=== PATIENT | female | born 1955 | race Caucasian/White ===

== ENCOUNTER 2019-12-19 08:44 | Emergency (ER) | payer BC ==
[~2019-12-19] VITALS: Ht 162.6 cm; Wt 68.0 kg
--- NOTE | 2019-12-19 08:54 | PHYS DOC ---
General Adult EDM: Chief Complaint: ABDOMINAL PAIN HPI: HPI: Patient is a 64 year old female presenting to the ED with a chief complaint of right lower quadrant abdominal pain that started around 6 AM this morning. Patient states that the pain lasted 1 hour and is eased up currently. Patient describes nausea but no vomiting. Patient states that she thought she had a hernia as she has been lifting a lot of weights recently. Patient denies fever, chills, dysuria, hematuria. Patient states that she does not have a history of ovarian cyst. Patient describes the pain as dull with no radiation. Review of Systems: Review of Systems: Constitutional: Denies fever or chills. [] Eyes: Denies change in visual acuity. [] HENT: Denies nasal congestion or sore throat. [] Respiratory: Denies cough or shortness of breath. [] Cardiovascular: Denies chest pain or edema. [] GI: Complains of right lower quadrant tenderness and nausea. Patient denies vomiting. : Denies dysuria. [] Musculoskeletal: Denies back pain or joint pain. [] Neurologic: Denies headache, focal weakness or sensory changes. [] Heart Score: Risk Factors: Risk Factors: DM, Current or recent (<one month) smoker, HTN, HLP, family history of CAD, obesity. Risk Scores: Score 0 - 3: 2.5% MACE over next 6 weeks - Discharge Home Score 4 - 6: 20.3% MACE over next 6 weeks - Admit for Clinical Observation Score 7 - 10: 72.7% MACE over next 6 weeks - Early Invasive Strategies Physical Exam: PE: Constitutional: Well developed, well nourished, no acute distress, non-toxic appearance. [] HENT: Normocephalic, atraumatic Eyes: EOMI Neck: Normal range of motion, Supple Cardiovascular:Heart rate regular rhythm Lungs & Thorax: Bilateral breath sounds clear to auscultation [] Abdomen: Right lower quadrant tenderness Extremities: No tenderness, ROM intact Neurologic: Alert and oriented X 3 EKG: EKG: [] Radiology/Procedures: Radiology/Procedures: [] Impression: IMPRESSION: Mild hydronephrosis or hydroureter on the right side due to recent passage of ureteral stone. The dilatation of the upper right urinary tract may be due to persistent distal ureteral edema. There are 2 punctate stones within the lumen of the urinary bladder. Small right lower lobe lung nodules. If the patient is at high risk for malignancy, follow-up chest CT in 12 months is recommended as per Fleischner guidelines. If low risk, then no further follow-up is needed. Course & Med Decision Making: Course & Med Decision Making Pertinent Labs and Imaging studies reviewed. (See chart for details) Ordered labs, UA, CT abdomen pelvis Labs are within normal limits. UA shows that patient has hematuria. CT shows recently passed ureteral stones on the right. There are lung nodules also seen which I have discussed with patient so that patient can follow-up with her PCP. Patient can be discharged for outpatient follow-up. Discussed results and plan of care with patient. Patient is instructed to follow up with PCP in one to 2 days. Appropriate discharge instructions given to patient to return to the ED or to seek immediate medical evaluation. Patient is instructed to return to the ED if symptoms worsen or if any concerns. Dragon Disclaimer: Dragon Disclaimer: This electronic medical record was generated, in whole or in part, using a voice recognition dictation system. Departure Departure Impression: Primary Impression: Kidney stone Additional Impression: Multiple lung nodules on CT Disposition: 01 HOME, SELF-CARE Condition: IMPROVED Patient Instructions: Diet for Kidney Stones, Pulmonary Nodule Additional Instructions: Please return to the ED if symptoms worsen or if any concerns. Please follow-up with your PCP for continued evaluation of the pulmonary nodules found on the CT scan. TUAN SRIVASTAVA DO December 19, 2019 08:54
[2019-12-19] MEDS ORDERED: IV NORMAL SALINE 1000ML BAG 1,000 ML IV ONE (09:00)
[2019-12-19 09:16] LABS: BASO # 0.1 x10^3/uL (0.0-0.2); BASO % 1 % (0-3); EOS # 0.1 x10^3/uL (0.0-0.7); EOS % 2 % (0-3); HEMATOCRIT 41.8 % (36.0-47.0); HEMOGLOBIN 14.2 g/dL (12.0-15.5); LYMPH % 18 % (24-48); MEAN CORPUSCULAR HEMOGLOBIN 31 pg (25-35); MEAN CORPUSCULAR HGB CONC 34 g/dL (31-37); MEAN CORPUSCULAR VOLUME 91 fL (79-100); MONO # 0.3 x10^3/uL (0.0-1.1); MONO % 6 % (0-9); NEUT # 4.4 x10^3/uL (1.8-7.7); NEUT % 74 % (31-73); PLATELET COUNT 240 x10^3/uL (140-400); RED BLOOD COUNT 4.62 x10^6/uL (3.50-5.40); RED CELL DISTRIBUTION WIDTH 13.4 % (11.5-14.5); WHITE BLOOD COUNT 5.9 x10^3/uL (4.0-11.0)
[2019-12-19 09:25] LABS: BILIRUBIN,URINE NEGATIVE (NEG); CLARITY,URINE CLEAR; COLOR,URINE YELLOW; NITRITE,URINE NEGATIVE (NEG); PROTEIN,URINE NEGATIVE (NEG-TRACE); UROBILINOGEN,URINE 0.2 mg/dL (0.2 mg/dL)
[2019-12-19 09:36] LABS: BACTERIA,URINE FEW /HPF (0-FEW); RBC,URINE >40 /HPF (0-2); SQUAMOUS EPITHELIAL CELL,UR FEW /LPF
[2019-12-19 10:15] LABS: CALCIUM 8.3 mg/dL (8.5-10.1); CREATININE 0.9 mg/dL (0.6-1.0); GFR 63.4; POTASSIUM 3.6 mmol/L (3.5-5.1)
[2019-12-19 10:29] LABS: ALBUMIN 3.5 g/dL (3.4-5.0); ALBUMIN/GLOBULIN RATIO 1.1 (1.0-1.7); TOTAL BILIRUBIN 0.2 mg/dL (0.2-1.0); TOTAL PROTEIN 6.7 g/dL (6.4-8.2)
--- NOTE | 2019-12-19 10:44 | RAD ---
CT STUDY OF THE ABDOMEN AND PELVIS WITHOUT CONTRAST CLINICAL INDICATIONS: Right lower quadrant abdominal pain. TECHNIQUE: Noncontrast helical CT scanning of the abdomen and pelvis was performed. Without contrast, the sensitivity to detect organ pathology and GI tract pathology is decreased. PQRS compliance Statement One or more of the following individualized dose reduction techniques were utilized for this study: 1. Automated exposure control 2. Adjustment of the mA and/or kV according to patient size 3. Use of iterative reconstruction technique COMPARISON: None available. FINDINGS: The liver and spleen and pancreas are homogeneous in appearance on this noncontrast study. No adrenal mass is evident. The gallbladder is surgically absent. No extrahepatic biliary ductal dilatation is seen. Small left renal cyst is seen within the lateral mid aspect. This is an incidental finding and no further workup is needed. There is mild right-sided hydronephrosis and hydroureter. This may be due to recent passage of a ureteral stone. There are 2 punctate stones within the posterior mid aspect of the urinary bladder. Calcified phleboliths are seen within both sides of the anatomic pelvis. No renal stone is evident within either kidney. No focal aneurysmal dilatation of the abdominal aorta is seen. No enlarged abdominal or pelvic lymphadenopathy is evident. No uterine mass is seen. No dominant ovarian mass or cyst is seen. The appendix is normal. No obstructive bowel pattern is evident. No free air or free fluid or mesenteric edema is seen. No lung base consolidation is evident. Small right lower lobe lung nodules are seen largest measures less than 4 mm in size. Calcified granuloma of the left lower lobe is seen. No lytic process is seen. IMPRESSION: Mild hydronephrosis or hydroureter on the right side due to recent passage of ureteral stone. The dilatation of the upper right urinary tract may be due to persistent distal ureteral edema. There are 2 punctate stones within the lumen of the urinary bladder. Small right lower lobe lung nodules. If the patient is at high risk for malignancy, follow-up chest CT in 12 months is recommended as per Fleischner guidelines. If low risk, then no further follow-up is needed. Electronically signed by: Fernando Melo MD (12/19/2019 10:41 AM) [id number]
[2019-12-19 11:14] VITALS: BP 103/65
== END 2019-12-19 11:20 | disposition home or self-care (01) ==
LOC: ER 08:44
DX: N13.2 Hydronephrosis with renal and ureteral calculous obstruction (principal); R91.8 Other nonspecific abnormal finding of lung field
CPT/HCPCS: 36415; 74176; 80053; 81001; 83605; 83690; 85025; 99284; J7030; 99285-25